=== PATIENT | male | born 1990 | race Caucasian/White ===

== ENCOUNTER 2023-09-20 13:16 | Emergency (ER) | payer OTHER ==
[~2023-09-20] VITALS: Ht 177.8 cm; Wt 113.4 kg
[2023-09-20 14:11] VITALS: BP 145/87
[2023-09-20] MEDS ORDERED: ValACYClovir HCL 500 MG Tab PO ONE (15:35)
== END 2023-09-20 15:50 | disposition home or self-care (01) ==
LOC: ER 13:16
DX: B00.1 Herpesviral vesicular dermatitis (principal)
CPT/HCPCS: 99282; A9270